=== PATIENT | male | born 1970 | race Caucasian/White ===

== ENCOUNTER 2020-03-24 10:38 | Outpatient (CLI) | payer OTHER, SELFPAY ==
--- NOTE | ~2020-03-24 | XR_ITS ---
EXAMINATION: XR chest 2V DATE: 03/24/2020 10:59 INDICATION: Orthopnea. TECHNIQUE: Frontal and lateral views of the chest were obtained. COMPARISON: Chest 2 views 07/01/2016, CT abdomen and pelvis 06/02/2019 FINDINGS: There is mild atelectasis at the lung bases. No pleural effusion or pneumothorax. The heart size is normal. There are prominent paracardial fat pads. IMPRESSION: 1. Mild atelectasis at the lung bases. Reviewed, dictated and finalized at location A.
== END 2020-03-24 10:39 | disposition home or self-care (01) ==
PROVIDERS: PCP Family Medicine; Visit Provider Family Medicine
DX: R06.01 Orthopnea (principal); J98.11 Atelectasis
CPT/HCPCS: 71046

== ENCOUNTER 2020-04-04 07:32 | Outpatient (CLI) | payer OTHER, SELFPAY ==
--- NOTE | 2020-04-04 | EST_ITS ---
Patient Info Name: Amanuel Perez Age: 50 years : 1970 Gender: Male Ht: 73 in Wt: 344 lbs BSA: 2.91 m2 Exam Date: 04/04/2020 11:05 AM Exam Location: [facility] Stress Patient Status: Outpatient Admit Date: 04/04/2020 Staff Ordering Physician: Rambo Carrillo MD Attending Provider: Rambo Carrillo MD Exercise Technologist: Cassi Patiño RDCS Exercise Physician: Ivan Aquino DO Exam Type: CA stress shane w NM Study Info Indications R06.01 - Orthopnea R07.89 - Other chest pain A regadenoson stress test was performed. Summary 1. 1. Negative lexiscan stress test for ischemic ST changes by ECG criteria. 2. 2. Stable hemodynamics throughout the test. 3. 3. Nuclear scan to follow and will be reported separately. Please correlate with it. 4. 4. Patient informed of the above results. Protocol: Lexiscan Stress ECG Details Stage: REST Duration (min): 3 min : 16 sec HR (bpm): 72 SBP (mmHg): 122 DBP (mmHg): 71 Stage: REST Duration (min): 8 min : 23 sec HR (bpm): 69 SBP (mmHg): 122 DBP (mmHg): 71 Stage: STAGE 1 Duration (min): 1 min : 0 sec HR (bpm): 90 SBP (mmHg): 121 DBP (mmHg): 53 Stage: RECOVERY Duration (min): 1 min : 0 sec HR (bpm): 92 SBP (mmHg): 117 DBP (mmHg): 56 Stage: RECOVERY Duration (min): 2 min : 0 sec HR (bpm): 90 SBP (mmHg): 117 DBP (mmHg): 56 Stage: RECOVERY Duration (min): 3 min : 0 sec HR (bpm): 89 SBP (mmHg): 133 DBP (mmHg): 61 Stage: RECOVERY Duration (min): 3 min : 3 sec HR (bpm): 88 SBP (mmHg): 133 DBP (mmHg): 61 Rest HR: 69 bpm Peak HR: 95 bpm Rest Sys BP: 122 mmHg Peak Sys BP: 133 mmHg Max Pred HR: 168 bpm % Max Pred HR: 57 % Target HR: 143 bpm Max RPP: 12,635 bpm*mmHg Termination Reason: Completed protocol Cardiac Symptoms: Shortness of breath Total Time: 1 min : 0 sec Rest Arevalo BP: 71 mmHg Peak Arevalo BP: 61 mmHg Total Dose: 0.4 mg Resting ECG Sinus rhythm with low voltage in precordial leads. Stress ECG No ST change. Arrhythmias None. Report Signatures
--- NOTE | ~2020-04-04 | NM_ITS ---
EXAMINATION: NM shane stress w perfusion DATE: 04/04/2020 13:10 INDICATION: Orthopnea. Chest pain. TECHNIQUE: Rest images were obtained following intravenous administration of 9.36 mCi Tc99m tetrofosm in (Myoview). The patient was infused intravenously with Lexiscan (Regadenoson). Then, 26.8 mCi Tc99m tetrofosmin (Myoview) was administered intravenously, and stress images were obtained. Data was charlie nstructed into short axis and horizontal and vertical long axis SPECT images. Gated SPECT images were also obtained. COMPARISON: None. FINDINGS: Small mild fixed perfusion defect involving the inferoapical, mid inferior and mid inferola teral segments consistent with infarct. No reversible ischemia. There is normal left ventricular vijay mber size, wall motion and ejection fraction. Left ventricular ejection fraction measures 67%. IMPRESSION: 1. Small mild infarct involving the apical inferior and mid inferior and mid inferolateral segments. No reversible ischemia. 2. Left ventricular ejection fraction measuring 67%. Reviewed, dictated and finalized at location A. IMPRESSION: 1. Small mild infarct involving the apical inferior and mid inferior and mid in ferolateral segments. No reversible ischemia. 2. Left ventricular ejection fraction measuring 67%.
--- NOTE | 2020-04-04 07:44 | ECHO_ITS ---
Patient Info Name: Amanuel Perez Age: 50 years : 1970 Gender: Male Ht: 71 in Wt: 344 lbs BSA: 2.88 m2 HR: 82 bpm BP: 131 / 85 mmHg Technical Quality: Fair Exam Date: 04/04/2020 7:55 AM Exam Location: [facility] Pulmonary Patient Status: Outpatient Admit Date: 04/04/2020 Staff Ordering Physician: Rambo Carrillo MD Microgrinder Operator: Adi Lemus RDCS, RT Attending Provider: Rambo Carrillo MD Referring Physician: Gerardo CHARLTON; Exam Type: CA echo doppler color flow Study Info Indications I50.9 - Heart failure, unspecified Complete two-dimensional, color flow and Doppler transthoracic echocardiogram is performed. Summary 1. Left ventricular chamber dimension is normal. 2. Left ventricular systolic function is normal, estimated at 55-60%. 3. There is mildly increased left ventricular wall thickness. 4. The left ventricular diastolic function is grade II diastolic dysfunction. 5. E/e' 4 is not elevated. Left Ventricle E/e' 4 is not elevated. Left ventricular chamber dimension is normal. Left ventricular systolic function is normal, estimated at 55-60%. There is mildly increased left ventricular wall thickness. The left ventricular diastolic function is grade II diastolic dysfunction. Right Ventricle Right ventricular chamber dimension is normal. Right ventricular systolic function is normal. Left Atria Left atrial chamber dimension is normal. Right Atria Right atrial chamber dimension is not well visualized. Aortic Valve Cannot determine number of aortic valve leaflets. The aortic valve is not well visualized. There is no aortic valve stenosis. There is no aortic valve regurgitation. Pulmonic Valve The pulmonic valve is not well visualized. There is no pulmonic regurgitation. Mitral Valve There is no mitral valve stenosis. There is no mitral valve regurgitation. Tricuspid Valve The tricuspid valve leaflets are not well visualized. There is no tricuspid valve regurgitation. Pericardium/Pleural There is no pericardial effusion. Inferior Vena Cava Normal inferior vena cava with >50% collapse upon inspiration consistent with normal right atrial pressure, 5 mmHg. Aorta The aortic root size at the sinus of Valsalva is normal. Left Ventricular Outflow Tract Name Value Normal LVOT 2D LVOT Diameter 2.1 cm LVOT Doppler LVOT Peak Gradient 4 mmHg LVOT Mean Gradient 2 mmHg LVOT VTI 22 cm LVOT VTI/AV VTI Ratio 0.8 LVOT Stroke Volume 80 ml LVOT CO 5.7 l/min LVOT CI 2.0 l/min/m2 Pulmonic Valve Name Value Normal PV Doppler PV Peak Gradient 2 mmHg Mitral Valve
== END 2020-04-04 07:33 | disposition home or self-care (01) ==
PROVIDERS: PCP Family Medicine; Visit Provider Family Medicine
DX: R06.01 Orthopnea (principal); R07.89 Other chest pain; R06.02 Shortness of breath; I21.9 Acute myocardial infarction, unspecified
CPT/HCPCS: 78452; 93017; 93306; A9502; J2785

== ENCOUNTER 2020-04-11 06:40 | Outpatient (CLI) | payer OTHER, SELFPAY ==
[2020-04-11 17:06] LABS: SARS-CoV-2 RNA PCR Negative
== END 2020-04-11 06:41 | disposition home or self-care (01) ==
LOC: ANHCOVIDDT 06:41
PROVIDERS: PCP Family Medicine; Visit Provider Specialist
DX: Z01.812 Encounter for preprocedural laboratory examination (principal); Z20.828 Contact with and (suspected) exposure to other viral communicable diseases
CPT/HCPCS: 87635; C9803; U0003

== ENCOUNTER 2020-04-14 05:47 | Day surgery (SDC) | payer OTHER, SELFPAY ==
[2020-04-11 17:20] VITALS: BMI 45.1
[2020-04-14] VITALS (9 sets, daily range): BP systolic 114–138; BP diastolic 71–93; PULSE 68–83; RESP 14–18; TEMP 36–36.8; O2SAT 96–100
[2020-04-14 07:40] LABS: Basophils Percent Auto 0.7 % (0.2-1.2); Eosinophils Absolute Auto 0.1 K/mm3 (0-0.3); Eosinophils Percent Auto 1.9 % (0-4.4); Hematocrit 47.4 % (42.0-52.0); Hemoglobin 16.1 g/dL (14.0-18.0); Immature Granulocyte Absolute 0.02 K/mm3 (0.00-0.031); Immature Granulocyte Percent A 0.3 % (0-0.5); Lymphocytes Absolute Auto 1.51 K/mm3 (0.9-3.2); Mean Corpuscular Hemoglobin 30.8 pg (26-34); Mean Corpuscular Volume 90.8 fl (80-100); Mean Platelet Volume 10.1 fl (7.4-10.4); Monocytes Absolute Auto 0.4 K/mm3 (0.1-0.6); Monocytes Percent Auto 7.4 % (2.6-8.5); Neutrophils Absolute Auto 3.7 K/mm3 (1.3-6.7); Neutrophils Percent Auto 63.7 % (45.5-73.1); Platelet Count Result 232 k/mm3 (150-375); Red Blood Count 5.22 M/mm3 (4.6-6.20); Red Cell Distribution Width 12.4 % (11.5-14.5); White Blood Count 5.8 K/mm3 (4.5-10.0)
[2020-04-14 07:50] LABS: Prothrombin Time 12.9 Seconds (11.1-14.7)
[2020-04-14 07:52] LABS: Blood Urea Nitrogen 14 mg/dL (9-20); Carbon Dioxide 28 mmol/L (22-30); Chloride 103 mmol/L (98-107); Estimated CRCL calculation 131 ml/min; Estimated Glomerular Filt Rate > 60; Glucose 113 mg/dL (75-110); Potassium 4.2 mmol/L (3.4-5.0); Sodium 138 mmol/L (137-145)
--- NOTE | 2020-04-14 08:38 | WPDMODSED ---
Moderate Sedation Note-Pt Data Patient Data Diagnosis: History of chest pain Abnormal nuclear stress test Morbid obesity Allergies Allergy/AdvReac Type Severity Reaction Status Date / Time morphine Allergy Unknown Itchy, Verified 03/24/20 08:46 hives Home Medications Medication Instructions Recorded Confirmed Type metoprolol succinate 50 mg 50 mg PO DAILY #30 tablet 04/07/20 Rx tablet,extended release 24 hr aspirin 81 mg PO DAILY 04/11/20 04/11/20 History Current Medications: Active Medications Sodium Chloride (Normal Saline Iv) 500 mls @ 100 mls/hr IV CONT .Q5H [facility] Sedation/Anesthesia: No previous sedation/anesthesia problems (including family history). [facility] Past Medical History Medical History (Updated 03/24/20 @ 09:20 by Rambo Carrillo MD) Chest pressure Orthopnea Social History Social History Smoking status: Never smoker Smoking end date: 11/28/14 Alcohol intake: current Gender identity (if verbalized by the patient): Male Mod Sed Physical Exam Physical Exam Pre Procedural Exam: Normal: Neck, Throat, Airway, Lungs, Heart Rate, Heart Rhythm, Neuro Exam and Extremities and Variation: Appearance (Obese white male no apparent distress) and Heart Size (PMI not palpable because of body habitus) Hours since solid foods: 12 Hours since liquid intake: 12 Internal Medicine - PN: Obj Da Vital Signs Vital Signs: Vital Signs - 24 hr 04/14/20 07:27 Temperature 36.0 C L Pulse Rate 83 Respiratory Rate 18 Blood Pressure 131/84 Pulse Oximetry 96 Meds/Results Medications: Active Medications Generic Name Dose Route Start Last Admin Trade Name Freq PRN Reason Stop Dose Admin Sodium Chloride 500 mls @ 100 mls/hr 04/14/20 06:05 Normal Saline Iv IV CONT .Q5H [facility] Labs CBC & Chem 7: 04/14/20 07:31 04/14/20 07:31 Labs: Laboratory Results - last 24 hr 04/14/20 04/14/20 04/14/20 07:31 07:31 07:31 WBC 5.8 RBC 5.22 Hgb 16.1 Hct 47.4 MCV 90.8 MCH 30.8 MCHC 34.0 RDW 12.4 Plt Count 232 MPV 10.1 Immature Gran % (Auto) 0.3 Neut % (Auto) 63.7 Lymph % (Auto) 26.0 Sierra % (Auto) 7.4 Eos % (Auto) 1.9 Baso % (Auto) 0.7 Lymph # (Auto) 1.51 Sierra # (Auto) 0.4 Eos # (Auto) 0.1 Baso # (Auto) 0.0 Abs Immat Gran (auto) 0.02 Absolute Neuts (auto) 3.7 Absolute Nucleated RBC 0.0 Nucleated RBC % 0.0 PT 12.9 INR 1.0 Sodium 138 Potassium 4.2 Chloride 103 Carbon Dioxide 28 BUN 14 Creatinine 0.90 Estim Creat Clear Calc 131 Estimated GFR > 60 Glucose 113 H Calcium 9.0 ASA Classification/Sedation ASA Classification/Sedation ASA Class: II Emergent: No Risks: Risks, benefits and alternatives explained and patient/family accepted plan for sedation. Patient re-evaluated immediately prior to sedation.
--- NOTE | 2020-04-14 09:24 | P.PCNCC_ITS ---
Cardiac Cath Procedure Note Date of procedure:: 04/14/20 Performing physician:: Júnior Grier MD Indication:: History of chest pain, abnormal nuclear stress test Brief clinical history:: this is a 50-year-old man who has hypertension and morbid obesity. He experienced several weeks of unremitting chest pain recently which prompted an ischemic evaluation. His PCP had him undergo a nuclear stress test which demonstrated a apical inferior defect following this he was recommended to undergo angiography to delineate coronary anatomy. Procedure Procedure performed:: Left heart catheterization with left ventriculography and coronary angiography. Angio-Seal to right femoral artery Sedation/Medication given:: fentanyl 50 mg Versed 2 mg case start time 9:05 a.m. case end time 9:20 a.m. sedation provided by Ever Maldonado RN, trained observer Access site:: right femoral artery Estimated blood loss:: 10-15 cc Procedure note:: patient was brought to the cardiac catheterization lab in the postabsorptive state. The right femoral triangle was prepared and draped in the usual fashion. Anesthesia was provided with 1% lidocaine infiltrated locally. Using modified Seldinger technique a 5 Belgian sheath was placed into the femoral artery after this I used a 5 Belgian angled pigtail catheter to document left- sided hemodynamics and to inject the left ventriculogram in the MEZA projection. Following this the pigtail catheter was withdrawn. I used a 5 Belgian FL4 catheter to engage inject the left coronary artery and then a 5 Belgian JR4 catheter to engage inject the right coronary artery. After this the cineangiograms were remain viewed in the case was terminated. An angiogram was done of the femoral artery through the sheath after which an Angio-Seal device was deployed with good hemostatic result. Findings:: Hemodynamics: Central aortic pressure is 120/66 left ventricle 122/2 end-diastolic pressure 11 there is no systolic gradient on pullback across the aortic valve. The left ventricle is normal in size and exhibits concentric LVH. Contractility is well preserved in all segments the global ejection fraction is visually estimated to be 65% the left main coronary artery is large in caliber and widely patent the LAD is a large to medium caliber artery gives rise to a huge diagonal branch the LAD and the diagonal and septal branches are angiographically normal the circumflex is a large caliber vessel giving rise to the marginal branches the circumflex system is angiographically unremarkable right coronary is large in caliber and dominant to the posterior circulation the right coronary as well as its RPDA and PL branches are angiographically normal Conclusion:: right coronary dominant circulation with no evidence of CAD left ventricular hypertrophy with good systolic function successful Angio-Seal at the end of the case false-positive nuclear stress test because of obesity Júnior Grier MD [facility]
--- NOTE | 2020-04-14 09:30 | SUR.PHASEII ---
0930-pt has returned from the CCL after a negative cardiac cath. No distress noted. AOx4. Groin soft and non-tender, no evidence of bleeding or hematoma noted. String doppled pulse noted. Will continue to monitor.
--- NOTE | 2020-04-14 12:27 | SUR.PHASEII ---
1225-pt given D/C orders and instructions. Questions answered and verbalized understanding. AOx4. Groin soft and non-tender, no evidence of bleeding or hematoma noted. 2+ doppled pulse noted. Taken via wheelchair to waiting vehicle. No distress noted or verbalized at time of departure.
== END 2020-04-14 12:24 | disposition home or self-care (01) ==
PROVIDERS: PCP Family Medicine; Visit Provider Specialist
PROC: 4A023N7 Measurement of Cardiac Sampling and Pressure, Left Heart, Percutaneous Approach (ICD-10-PCS; CPT 93452; principal; 2020-04-14 08:30)
DX: R94.39 Abnormal result of other cardiovascular function study (principal); R07.9 Chest pain, unspecified; I10 Essential (primary) hypertension; E66.01 Morbid (severe) obesity due to excess calories; Z68.41 Body mass index [BMI] 40.0-44.9, adult
CPT/HCPCS: 36415; 80048; 85025; 85610; 93458; C1760; C1887; C1894; J1644; J2250; J3010; J7040

== ENCOUNTER → 2023-04-01 11:59 | Outpatient (CLI) | payer OTHER, SELFPAY ==
--- NOTE | ~2023-04-01 | XR_ITS ---
Clinical Indication: Shortness of breath PA and lateral views of the chest: Comparison: 03/24/2020 Findings: There is discoid bibasilar scarring or atelectasis. The lungs are otherwise clear. Cardiom ediastinal silhouette is within normal limits. Bones and soft tissues are unremarkable. Impression: Bibasilar scarring or atelectasis, otherwise clear lungs. Reviewed, dictated and finalized at location . Impression: Bibasilar scarring or atelectasis, otherwise clear lungs.
--- NOTE | ~2023-04-01 | XR_ITS ---
EXAM: XR sacrum coccyx min 2V DATE: 04/01/2023 12:45 HISTORY: M53.3 - Sacrococcygeal disorders, not elsewhere classified . COMPARISON: CT abdomen pelvis 06/02/2019. FINDINGS: Normal mineralization. One bone width posterior displacement of the distal coccygeal eleme nts, between the second and third coccygeal elements, slightly increased since the prior study. No ly tic or blastic lesion. Moderate bilateral hip osteoarthritis. No erosion or periosteal change. Soft t issues within normal limits. IMPRESSION: Posteriorly displaced fracture/dislocation between the second and third coccygeal element s, possibly representing acute on chronic displacement given the history of recent fall and subtle ch itz since the prior. Correlate with pain/tenderness. Reviewed, dictated and finalized at location K. IMPRESSION: Posteriorly displaced fracture/dislocation between the second and t hird coccygeal elements, possibly representing acute on chronic displacement gi luh the history of recent fall and subtle change since the prior. Correlate wit h pain/tenderness.
== END ==
PROVIDERS: PCP Family Medicine; Visit Provider Family Medicine
DX: R06.02 Shortness of breath (principal); M53.3 Sacrococcygeal disorders, not elsewhere classified
CPT/HCPCS: 71046; 72220

== ENCOUNTER 2024-03-07 06:55 | Outpatient (CLI) | payer OTHER, SELFPAY ==
--- NOTE | ~2024-03-07 | MR_ITS ---
MRI of the left shoulder Technique: Axial proton-density fat-sat images, coronal proton density fat-sat and T2 fat-sat images, and sagittal T1-weighted and T2 fat-sat images were acquired. Clinical History: Dislocation Findings: Exam degraded by motion artifact. There is mild AC joint degenerative change, with minimal subacromial spur. Coracoclavicular, coracoac romial, and coracohumeral ligaments are probably intact. Supraspinatus and infraspinatus tendons appear intact, without definite partial or full-thickness tea r. There is moderate to advanced tendinosis of the anterior, distal supraspinatus tendon. Subscapular is tendon is intact, with mild to moderate tendinosis. Tendon of long head of the biceps is intact. Suspected small fracture at the anterior inferior glenoid. There is anteroinferior labral tear. There is minimal posterior subluxation of the humeral head with respect to the glenoid. Probable mild focal acute Hill-Sachs deformity present. Inferior glenohumeral ligament is intact. Moderate glenohu meral joint effusion present. No fluid present in the subacromial/subdeltoid bursa. There is mild reba matous change of the subscapularis muscle belly. No muscle atrophy evident. There is fluid in the sub scapularis recess. 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 CT scan would be more s ensitive for fine bony evaluation of the glenoid. Small acute Hill-Sachs deformity. Above findings are compatible sequelae recent anteroinferior humeral head dislocation. Moderate glenohumeral joint effusion. Rotator cuff tendinosis without definite partial or full-thickness tear. Reviewed, dictated and finalized at [facility]. 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 C T scan would be more sensitive for fine bony evaluation of the glenoid. Small acute Hill-Sachs deformity. Above findings are compatible sequelae recent anteroinferior humeral head dislo cation. Moderate glenohumeral joint effusion. Rotator cuff tendinosis without definite partial or full-thickness tear.
== END 2024-03-07 06:56 | disposition home or self-care (01) ==
PROVIDERS: PCP Family Medicine; Visit Provider Orthopaedic Surgery
DX: M25.412 Effusion, left shoulder (principal); M75.32 Calcific tendinitis of left shoulder; S42.295A Other nondisplaced fracture of upper end of left humerus, initial encounter for closed fracture; X58.XXXA Exposure to other specified factors, initial encounter
CPT/HCPCS: 73221

== ENCOUNTER 2024-09-19 09:14 | Outpatient (CLI) | payer OTHER, SELFPAY ==
--- NOTE | ~2024-09-19 | XR_ITS ---
CHEST RADIOGRAPH, PA AND LATERAL CLINICAL HISTORY: R52 - Pain, unspecified . COMPARISON: 04/01/2023 TECHNIQUE: PA and lateral views of the chest. FINDINGS The cardiomediastinal silhouette is unremarkable. The lungs are clear. Visualized osseous structures and soft tissues are unremarkable. IMPRESSION: No focal infiltrate or effusion. Reviewed, dictated and finalized at location A.
== END 2024-09-19 09:15 | disposition home or self-care (01) ==
LOC: MICIMG 09:15
PROVIDERS: PCP Family Medicine; Visit Provider Nurse Practitioner Adult Health
DX: R52 Pain, unspecified (principal)
CPT/HCPCS: 71046

== ENCOUNTER 2025-08-21 13:05 | Outpatient (CLI) | payer OTHER, SELFPAY ==
--- OUTSIDE RECORDS SUMMARY | 2025-08-21 13:08 | XMS_ITS | Clinical Summary ---
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 Name Role Phone Rambo Carrillo MD Primary Care Provider [phone] Allergies Active Allergy Reactions Criticality Noted Date Comments Opioids - Morphine Analogues Itching Low Medications metoprolol XL (TOPROL-XL) 50 mg extended release tablet TK 1 T PO D 04/07/2020 Active Active Problems Problem Noted Date Diagnosed Date Screening for colon cancer 07/17/2025 LVH (left ventricular hypertrophy) 05/19/2020 Morbid obesity with BMI of 40.0-44.9, adult 03/28 Diastolic dysfunction 04/09/2020 Dyspnea 04/09/2020 Abnormal result of other cardiovascular function study 04/09/2020 Chest tightness 04/09/2020 Abnormal stress test 04/09/2020 Obstructive sleep apnea (adult) (pediatric) 03/29 Encounters Date Type Department Care Team Description 07/17/2025 Telephone [facility] Gastroenterology at [address] [place] [address] [facility] from Last 3 Months Surgical History Surgery Date Site/Laterality Comments HI EXC HYDROCELE SPRMATIC CORD UNI SPX Surgery Spermatic Cord Excision Of Hydrocele - (Added by TW Conv) HERNIA REPAIR 2004, 1984 VASECTOMY 11/28/2009 - 11/27/2010 KNEE ARTHROSCOPY Bilateral CARDIAC CATHETERIZATION Bilateral Medical History Medical History Date Comments Autoimmune disease Vitiligo 2009 DAYANARA (obstructive sleep apnea) Morbid obesity (HCC) Family History Medical History Relation Name Comments No Known Problems Brother Alcohol abuse Father Harsha Sleep apnea Father Harsha Obstructive sle ep apnea - (Added by TW Conv) Cancer Mother Charito No Known Problems Sister Relation Name Status Comments Brother Alive Father Harsah (Age 62) Mother Charito Alive Sister Alive Social History Tobacco Use Types Packs/Day Years Used Date Smoking Tobacco: Never Smokeless Tobacco: Never Alcohol Use Standard Drinks/Week Comments Yes 2 (1 standard drink = 0.6 oz pur e alcohol) Sex and Gender Information Value Date Recorded Sex Assigned at Not on file 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 Gender Identity Male 04/08/2020 4:12 PM CDT Sexual Orientation Straight 04/08/2020 4: 12 PM CDT Obstetrics History Last Filed Vital Signs Vital Sign Reading Time Taken Comments Blood Pressure 110/72 05/19/2020 12:57 PM CDT Pulse 77 05/19/2020 12:57 PM CDT Temperature - - Respiratory Rate - - Oxygen Saturation 95% 05/19/2020 12:57 PM CDT Inhaled Oxygen Concentration - - Weight 157.4 kg (347 lb) 05/19/2020 12:57 PM CDT Height 188 cm (6' 2) 05/19/2020 12:57 PM CDT Body Mass Index 44.55 05/19/2020 12:57 PM CDT Plan of Treatment Upcoming Encounters Date Type Department Care Team (Late st Contact Info) Description 08/22/2025 1:30 PM CDT Hospital Encounter [address] [address] Akhil Vuong DO [address] [facility] [address] [place] [address] 08/22/2025 1:30 PM CDT - 08/22/2025 2:00 PM CDT Surgery [address] [address] Akhil Vuong DO [address] [facility] [address] [place] [address] COLONOSCOPY Scheduled Procedures Name Priority Associated Diagnoses Date/Ti me COLONOSCOPY Screening for colon cancer 08/22/2025 1:30 PM CDT Health Maintenance Due Date Last Done Comments Colon Cancer Screening-Colonoscopy 1970 Depression Screening 1970 Hepatitis C Screening 1970 Prostate Cancer Screening-PSA 1970 DTaP/Tdap/Td Vaccine (1 - Tdap) 02/21/1979 Hepatitis B Screening 02/21/1986 Regular Well Visit/Exam 18-64 02/21/1986 Zoster Vaccine (1 of 2) 02/21/2018 Covid-19 Vaccine (2 - 2024-2 6 season) 2025 01/30/2021 Influenza Vaccine (#1) 2025 Pneumococcal vaccine <65 Aged Out No longer eligible based on patient's age to complete this topic Insurance [facility] Care Teams Biodiesel Plant Operations Engineer Relationship Specialty Start Date End Date Rambo Carrillo MD PCP - General Family Medicine 04/07/20
--- NOTE | 2025-08-21 13:24 | ECHO_ITS ---
Patient Info Name: Amanuel Perez Age: 55 years : 1970 Gender: Male Ht: 75 in Wt: 371 lbs BSA: 3.06 m2 HR: 72 bpm BP: 149 / 84 mmHg Technical Quality: Fair Exam Date: 08/21/2025 1:34 PM Patient Status: O Admit Date: 08/21/2025 Exam Type: CA echo doppler color flow Complete two-dimensional, color flow and Doppler transthoracic echocardiogram is performed. Roll Plugger: Angelique Martinez Attending Provider: Rambo Carrillo MD Summary 1. Complete two-dimensional, color flow and Doppler transthoracic echocardiogram is performed. 2. Left ventricular chamber dimension is normal. 3. Left ventricular systolic function is normal, estimated at 60-65. 4. The left ventricular diastolic function is grade I diastolic dysfunction. 5. E/e' 8 is minimally elevated. 6. The mitral valve has a mildly calcified annulus. 7. There is trace tricuspid valve regurgitation. 8. No pulmonary hypertension, estimated pulmonary arterial systolic pressure is 33 mmHg. Left Ventricle E/e' 8 is minimally elevated. Left ventricular chamber dimension is normal. Left ventricular systolic function is normal, estimated at 60-65. The left ventricular diastolic function is grade I diastolic dysfunction. Right Ventricle Right ventricular chamber dimension is normal. Right ventricular systolic function is normal and with normal TAPSE 2.1 cm. Left Atria Left atrial chamber dimension is normal. Right Atria Right atrial chamber dimension is normal. Aortic Valve The aortic valve is trileaflet. There is no aortic valve stenosis. There is no aortic valve regurgitation. Pulmonic Valve There is no pulmonic regurgitation. Mitral Valve The mitral valve has a mildly calcified annulus. There is no mitral valve stenosis. There is no mitral valve regurgitation. Tricuspid Valve There is trace tricuspid valve regurgitation. No pulmonary hypertension, estimated pulmonary arterial systolic pressure is 33 mmHg. Pericardium/Pleural There is no pericardial effusion. Inferior Vena Cava Normal inferior vena cava with >50% collapse upon inspiration consistent with normal right atrial pressure, 5 mmHg. Aorta The aortic root size at the sinus of Valsalva is normal. Left Ventricular Outflow Tract Name Value Normal LVOT 2D LVOT Diameter 2.0 cm LVOT Doppler LVOT Peak Velocity 108 cm/s LVOT Peak Gradient 5 mmHg LVOT Mean Gradient 3 mmHg LVOT VTI 21 cm LVOT VTI/AV VTI Ratio 0.8 LVOT Stroke Volume 69 ml LVOT CO 15.8 l/min LVOT CI 5.2 l/min/m2 Pulmonic Valve Name Value Normal PV Doppler PV Peak Velocity 104 cm/s PV Peak Gradient 4 mmHg Mitral Valve Name Value Normal MV Diastolic Function MV E Peak Velocity 73 cm/s MV A Peak Velocity 82 cm/s MV E/A 0.9 MV Decel Time (PW) 275 ms MV Annular TDI MV E/e' (Septal) 8.8 MV E/e' (Lateral) 8.0 MV E/e' (Average) 8.4 Tricuspid Valve Name Value Normal TV Regurgitation Doppler TR Peak Velocity 263 cm/s TR Peak Gradient 28 mmHg Estimated PAP/RSVP RA Pressure 5 mmHg <=5 PA Systolic Pressure 33 mmHg <36 RV Systolic Pressure 33 mmHg <36 TV Annular TDI TV Lateral Sandie s' Velocity 12.5 cm/s >=9.5 Aorta Name Value Normal Ascending Aorta Ao Root Diameter (MM) 3.8 cm Ao Root Diam Index (MM) 1.2 cm/m2 Aortic Valve Name Value Normal AV Doppler AV Peak Velocity 127 cm/s AV Peak Gradient 6 mmHg AV Mean Gradient 4 mmHg AV VTI 25 cm AV Area (Cont Eq VTI) 2.7 cm2 >=3.0 AV Area (Cont Eq Hugh) 2.8 cm2 AV DI (Hugh) 0.85 AV Regurgitation 2D LVOT Area 3.3 cm2 Ventricles Name Value Normal LV Dimensions 2D/MM IVS Diastolic Thickness (2D) 1.0 cm 0.6-1.0 LVID Diastole (2D) 3.8 cm 4.2-5.8 LVIW Diastolic Thickness (2D) 0.9 cm 0.6-1.0 LVID Systole (2D) 2.7 cm 2.5-4.0 LVOT Diameter 2.0 cm LV Mass (2D Cubed) 113.26 g 88.00-224.00 LV Mass Index (2D Cubed) 37 g/m2 49-115 Relative Wall Thickness (2D) 0.49 <=0.42 LV Fractional Shortening/Ejection Fraction 2D/MM LV Fractional Shortening (2D) 29 % 25-43 LV EF (2D Teichholz) 57 % LV Diastolic Volume (4C MOD) 138 ml LV EF (4C MOD) 65 % LV Diastolic Volume (2C MOD) 145 ml LV EF (2C MOD) 71 % LV Diastolic Volume (BP MOD) 144 ml 62-150 LV Diastolic Volume Index (BP MOD) 47 ml/m2 34-74 LV Systolic Volume (BP MOD) 45 ml 21-61 LV Systolic Volume Index (BP MOD) 15 ml/m2 11-31 LV EF (BP MOD) 68 % 52-72 LV Diastolic Length (4C) 8.9 cm LV Systolic Length (4C) 7.1 cm LV Stroke Volume (4C MOD) 90 ml RV Dimensions 2D/MM RVID Diastole (2D) 4.8 cm 2.1-3.5 Atria Name Value Normal LA Dimensions LA Volume (4C A-L) 37 ml LA Volume (BP A-L) 47 ml RA Dimensions RA Systolic Major Wildwood Length (4C) 4.9 cm 2.1-2.7 RA Area (4C) 19.2 cm2 <=18.0 Report Signatures
== END 2025-08-21 13:06 | disposition home or self-care (01) ==
PROVIDERS: PCP Family Medicine; Visit Provider Family Medicine
DX: R06.01 Orthopnea (principal); R07.89 Other chest pain; R60.9 Edema, unspecified
CPT/HCPCS: 93306

== ENCOUNTER 2025-09-13 15:23 | Outpatient (CLI) | payer OTHER, SELFPAY ==
--- NOTE | ~2025-09-13 | CT_ITS ---
EXAMINATION: CT sinus wo con COMPARISON: None HISTORY: R09.81 - Nasal congestion TECHNIQUE: Axial images were obtained without IV contrast. Sagittal, coronal reconstruction images were obtained from the axial views. CT scan performed using dose optimization techniques including the following automated exposure control; adjustment of mA and/or kV; use of iterative reconstruction technique. Automatic exposure control was used to reduce radiation dose. Permanent radiation dose record is archived to PACS. FINDINGS: Visualized brain parenchyma optic globes and soft tissues appear unremarkable Frontal sinuses are diminutive. Minimal mucosal thickening in the ethmoidal air cells. Minimal mucosal thickening in the left maxillary sinus. The ostiomeatal complexes are narrowed but patent. Nasal septum is anteriorly deviated to the left, there is thickening of the turbinates with narrowing of the nasal cavities bilaterally. The sphenoid sinuses appear unremarkable. No osseous destruction or wall thickening is identified. IMPRESSION: Sinusitis detailed above Reviewed, dictated and finalized at location P. IMPRESSION: Sinusitis detailed above
--- NOTE | ~2025-09-13 | XR_ITS ---
EXAMINATION: XR chest 2V, 09/13/2025 15:54 CDT HISTORY: R05.3 - Chronic cough COMPARISON: No comparisons available. Technique: 2 views obtained. Findings: Multiple small basilar infiltrates. No pneumothorax. Heart is normal size. Mediastinal and hilar contours are within normal limits. Bony thorax no acute abnormality. Impression: Bilateral pneumonia Reviewed, dictated and finalized at location P. Impression: Bilateral pneumonia
--- OUTSIDE RECORDS SUMMARY | 2025-09-13 15:28 | XMS_ITS | Encounter Summary ---
Author Organization [facility] Healthcare Address [address] [place] [address] Care Team Providers Care Child & Adolescent Psychiatrist Name Role Phone Rambo Carrillo MD Primary Care Provider [phone] Encounter Details Date Type Department Care Team (Latest Contact Info) Description 08/25/2025 Results Follow-Up [facility] Gastroenterology at [address] [place] [id number] Akhil Vuong, [address] [place] [address] Surgical pathology Social History Tobacco Use Types Packs/Day Years Used Date Smoking Tobacco: Never Smokeless Tobacco: Never Alcohol Use Standard Drinks/Week Comments Yes 1 (1 standard drink = 0.6 oz pur e alcohol) AUDIT-C Answer Date Recorded Q1: How often do you have a drink containing alc ohol? 2-4 times a month 08/21/2025 Q2: How many drinks containi ng alcohol do you have on a typical day when you are drinking? 1 or 2 08/21/2025 Frequency of Binge Drinking Not on file 07/30 Personal Safety Answer Date Recorded Have you ever been in or are you currently in a harmful physical or emotional relationship or is someone making you feel afraid or unsafe? 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 Copy has been sent to primary and mailed to patient. Patient will giveour office a call later to schedule 6 month colonoscopy once he's around his calendar. documented in this encounter Plan of Treatment Not on file documented as of this encounter Visit Diagnoses Not on filedocumented in this encounter Care Teams Child & Adolescent Psychiatrist Relationship Specialty Start Date End Date Rambo Carrillo MD PCP - General Family Medicine 04/07/20 documented as of this encounter
--- OUTSIDE RECORDS SUMMARY | 2025-09-13 15:28 | XMS_ITS | Clinical Summary ---
Author Organization [facility] [address] Address [address] [place] [address] Care Team Providers Care Power Equipment Mechanics Instructor Name Role Phone Rambo Carrillo MD Primary Care Provider [phone] Allergies Active Allergy Reactions Criticality Noted Date Comments Opioids - Morphine Analogues Itching Low Medications metoprolol XL (TOPROL-XL) 50 mg extended release tablet TK 1 T PO D 04/07/2020 Ac tive furosemide (LASIX) 40 mg tablet Take 1 tablet (40 mg total) by mouth every morning 07/30/2025 Active Active Problems Problem Noted Date Diagnosed Date Screening for colon cancer 07/17/2025 LVH (left ventricular hypertrophy) 05/19/2020 Morbid obesity with BMI of 40.0-44.9, adult 03/28 Diastolic dysfunction 04/09/2020 Dyspnea 04/09/2020 Abnormal result of other cardiovascular function study 04/09/2020 Chest tightness 04/09/2020 Abnormal stress test 04/09/2020 Obstructive sleep apnea (adult) (pediatric) 03/29 Encounters Date Type Department Care Team Description 08/25/2025 Results Follow-Up [facility] Gastroenterology at [place] [address] [facility] [address] [place] [address] Akhil Vuong, Surgical pathology 08/22/2025 9:00 AM CDT Anesthesia Event [facility] [address] [place] [address] Jose Liu MD [place], Natanael Chávez, BOILER ROOM OPERATOR 08/22/2025 9:00 AM CDT - 08/22/2025 9:30 AM CDT Surgery [facility] [address] [place] [address] Akhil Vuong, DO COLON REMOVAL SNARE 08/22/2025 7:47 AM CDT - 08/22/2025 10:33 AM CDT Hospital Encounter [facility] [address] [place] [address] Akhil Vuong, DO Screening for colon cancer Discharge Disposition: Discharge to home or self care 07/17/2025 Telephone [facility] Gastroenterology at [place] [address] [facility] [address] [place] [phone] Christin Butler MA from Last 3 Months Surgical History Surgery Date Site/Laterality Comments CA EXC HYDROCELE SPRMATIC CORD UNI SPX Surgery Spermatic Cord Excision Of Hydrocele - (Added by TW Conv) HERNIA REPAIR 1984 VASECTOMY 11/28/2009 - 11/27/2010 KNEE ARTHROSCOPY Bilateral CARDIAC CATHETERIZATION Bilateral COLONOSCOPY 08/22/2025 Medical History Medical History Date Comments DAYANARA (obstructive sleep apnea) Morbid obesity (HCC) Adenomatous colon polyp Vitiligo Family History Medical History Relation Name Comments No Known Problems Brother Alcohol abuse Father Harsha Sleep apnea Father Harsha Obstructive sle ep apnea - (Added by TW Conv) Cancer Mother Charito Colon cancer Mother Charito No Known Problems Sister Relation Name Status Comments Brother Alive Father Harsha (Age 62) Mother Charito Alive Sister Alive [...] on file 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 Gender Identity Male 04/08/2020 4:12 PM CDT Sexual Orientation Straight 04/08/2020 4: 12 PM CDT Obstetrics History Last Filed Vital Signs Vital Sign Reading Time Taken Comments Blood Pressure 132/78 08/22/2025 10:14 AM CDT Pulse 79 08/22/2025 10:14 AM CDT Temperature 36.6 C (97.9 F) 08/22/2025 10:14 AM CDT Respiratory Rate 16 08/22/2025 10:14 AM CDT Oxygen Saturation 98% 08/22/2025 10:14 AM CDT Inhaled Oxygen Concentration - - Weight 168.3 kg (371 lb) 08/22/2025 8:08 AM CDT Height 188 cm (6' 2) 08/22/2025 8:08 AM CDT Body Mass Index 47.63 08/22/2025 8:08 AM CDT Plan of Treatment Health Maintenance Due Date Last Done Comments Depression Screening 1970 Hepatitis C Screening 1970 Prostate Cancer Screening-PSA 1970 DTaP/Tdap/Td Vaccine (1 - Tdap) 02/21/1979 Hepatitis B Screening 02/21/1986 Regular Well Visit/Exam 18-64 02/21/1986 Zoster Vaccine (1 of 2) 02/21/2018 Covid-19 Vaccine (2 - 2024-2 6 season) 2025 01/30/2021 Influenza Vaccine (#1) 2025 Colon Cancer Screening-Colonoscopy 08/22/2035 08/22/2025 Colon Cancer Screening-CT Colonography Discontinued 08/22/2025 Colon Cancer Screening-DNA Stool Discontinued 08/22/20 Colon Cancer Screening-FIT Discontinued 08/22/2025 Colon Cancer Screening-Sigmoidoscopy Discontinued 08/22/2025 Pneumococcal vaccine <65 Aged Out No longer eligible based on patient's age to complete this topic Procedures Procedure Name Priority Date/Time Associated Diagnosis Comments SURGICAL PATHOLOGY STAT 08/22/2025 2: 27 PM CDT Screening for colon cancer ENDO ADD ON COLON BIOPSY 08/22/2025 8:56 AM CDT Screening for colon cancer COLON REMOVAL SNARE 08/22/2025 8 :56 AM CDT Screening for colon cancer COLONOSCOPY 08/22/2025 7:49 AM CDT from Last 3 Months Results * Surgical pathology (08/22/2025 2:27 PM CDT) Tissue (Polyp(s), colon/colorectal, esophageal, gastric) 08/22/2025 9:40 AM CDT Tissue specimen (specimen) (Polyp(s), colon/colorectal, esophageal, gastric) 08/22/2025 9:41 AM CDT Tissue specimen (specimen) (Polyp(s), colon/colorectal, esophageal, gastric) 08/22/2025 9:41 AM CDT Tissue specimen (specimen) (Polyp(s), colon/colorectal, esophageal, gastric) 08/22/2025 9:41 AM CDT Tissue specimen (specimen) (Polyp(s), colon/colorectal, esophageal, gastric) 08/22/2025 9:41 AM CDT Narrative PATHOLOGY [facility] - 08/23/2025 4:06 PM CDT EPIC results best viewed via link to PDF [facility] Department of Pathology [address] [place] [address] Note to Patients: This report may contain a detailed description of human tissue sent by a health care provider to the laboratory for pathologic evaluation. The content of this report is essential for diagnosis and may provide important critical findings. This information may be unfamiliar to patients to review without a medical professional present. It is advised that the patient review this report in the presence of a health care provider who can answer questions and explain the details. Final Report Patient Name: KATLYN PEREZEdi Address: [address] [place] [address] , [place] [address] Gender: M : 1970 (Age: 55) Service: Gastro Location: [facility] Hospital #: [id number] Patient Type: [facility] Taken: 08/22/2025 Received: 08/22/2025 Accessioned: 08/22/2025 Reported: 08/23/2025 Physician(s):Dr. Akhil Vuong, D.O. Diagnosis: A. Distal transverse colon polyp, endoscopic biopsy- Tubular adenoma B. Proximal transverse colon polyp, endoscopic biopsy- Tubular adenoma C. Ascending colon polyp, endoscopic piecemeal polypectomy- Tubular adenoma fragments D. Descending colon polyps x2, endoscopic biopsies- Fragments of tubular adenomas E. Rectal polyp, endoscopic biopsy- Hyperplastic polyp Jeanette Rodriguez M.D. Report Electronically Reviewed and Signed Out By Jeanette Rodriguez M.D. 08/23/2025 16:06:59 Specimen(s) Received: A: Distal transverse polyp x 1 B: Proximal transverse polyp x 1 C: Ascending polyp x 1 D: Descending polyp x 2 E: Rectal polyp x 1 Microscopic Description: Microscopic examination corroborates the diagnosis. There is no evidence of high-grade dysplasia or malignancy in material examined. Clinical History: Screening for colon cancer. Colonoscopy. Gross Description: The specimen is submitted in five containers labeled KATLYN PEREZ. A. The first container is labeled distal transverse polyp. It is 1 pickens tissue fragment measuring 3 mm. All in A. B. The second container is labeled proximal transverse polyp. It is 1 red-pickens polypoid tissue fragment measuring 9 mm. Inked and bisected. All in B. C. The third container is labeled ascending polyp. It is multiple pickens polypoid tissue fragments with an approximate aggregate volume of 2 cc. The largest piece is 9 mm which is inked and bisected. All in C. D. The fourth container is labeled descending polyp x2. It is 2 pickens tissue fragments between 2 and 4 mm. All in D. E. The fifth container is labeled rectal polyp. It is 2 pickens tissue fragments measuring 1 mm. All in E. T.A. Etta David., P.A./Ta Burt M.D. REPORT IMAGES AND SCANNED DOCUMENTS, IF INCLUDED, ONLY VIEWABLE IN PDF VERSION OF REPORT The performance characteristics of some immunohistochemical stains, fluorescence in-situ hybridization tests and immunophenotyping by flow cytometry cited in this report (if any) were determined by the Surgical Pathology Department at [facility] as part of an ongoing nurse quality program and in compliance with federally mandated regulations drawn from the Clinical Laboratory Improvement Act of 1988 (CLIA '88). Some of these tests rely on the use of analyte specific reagents and are subject to specific labeling requirements by the US Food and Drug Administration. Such diagnostic tests may only be performed in a facility that is certified by the Department of Health and Human Services as a high complexity laboratory under CLIA '88. The FDA has determined that such clearance or approval is not necessary. This test is used for clinical purposes. It should not be regarded as investigational or for research. Nevertheless, federal rules concerning the medical use of analyte specific reagents require that the following disclaimer be attached to the report: This test was developed and its performance characteristics determined by the Surgical Pathology Department [facility]. It has not been cleared or approved by the U. S. Food and Drug Administration. Note for decalcified specimens: This assay has not been validated on decalcified tissues. Results should be interpreted with caution given the possibility of false negativity on decalcified specimens us Akhil Vuong DO LAB PATHOLOGY ORDERABLES Final Result Performing Organization Address City/State/[facility] Co de Phone Number PATHOLOGY [address] [phone] * Colonoscopy (08/22/2025 7:49 AM CDT) Anatomical Region Laterality Modality Other Narrative Procedure Note Akhil Vuong, - 08/22/2025 7:49 AM CDT [facility] Patient Name: Katlyn Perez Procedure Date: 08/22/2025 7:49 AM Date of : 1970 Admit Type: Outpatient Age: 55 Gender: Male Attending MD: Akhil Vuong D.O., Room: [facility] ENDOSCOPY ROOM 3 Note Status: Finalized Patient Profile: Refer to note in patient chart for documentation of history and physical. Procedure: Colonoscopy Indications: Family history of colon cancer in patient's mother, Last colonoscopy: 2014 Referring MD: Rambo Carrillo M.D. Providers: Akhil Vuong D.O. Impression: - One 20 mm polyp in the ascending colon, removedwith a hot snare. Resected and retrieved. Clips (MR conditional) were placed. Clip printing roller handler: [employer]. - One 8 mm polyp in the proximal transverse colon, removed with a hot snare. Resected and retrieved.Clip (MR conditional) was placed. Clip printing roller handler:[employer]. - One 6 mm polyp in the distal transverse colon, removed with a hot snare. Resected and retrieved. - One 5 mm polyp in the proximal descending colon, removed with a hot snare. Resected and retrieved. - One 2 mm polyp in the proximal descending colon, removed with a jumbo cold forceps. Resected and retrieved. - Diverticulosis in the left colon. - One 2 mm polyp in the rectum, removed with ajumbo cold forceps. Resected and retrieved. - Non-bleeding internal hemorrhoids. Recommendation: - Discharge patient to home. - Resume previous diet. - Continue present medications. - Await pathology results. - Repeat colonoscopy in 6 months for surveillance after piecemeal polypectomy. - Return to primary care physician PRN. Medicines: Monitored Anesthesia Care Complications: No immediate complications. Estimated Blood Loss: Estimated blood loss was minimal. Procedure: Pre-Anesthesia Assessment: - As per anesthesia. The benefits, risks and alternatives of theprocedure and sedation were discussed and informed consentwas obtained. All questions were answered. Please referto the signed informed consent document in the medical record. The bowel preparation used was Miralax via split dose instruction. The bowel preparation usedwas bisacodyl tablets via split dose instruction. The scope was passed under direct vision. TheColonoscope [id number] was introduced through the anus and advanced to the the cecum, identified by appendiceal orifice and ileocecal valve. The colonoscopy was performed without difficulty. The patient tolerated the procedure well. The qualityof the bowel preparation was adequate. Anatomical landmarks were photographed. Findings: The perianal and digital rectal examinations were normal. A 20 mm polyp was found in the ascending colon. The polyp was semi-pedunculated. The polyp was removed piecemeal with a hot snare. Resection and retrieval were complete. Soft coag was utilized aroundthe edges of the polypectomy site. To prevent bleeding post-intervention, three hemostatic clips were successfully placed (MR conditional).Clip printing roller handler: [employer]. There was no bleeding at the end ofthe procedure. An 8 mm polyp was found in the proximal transverse colon. The polypwas pedunculated. The polyp was removed with a hot snare. Resection and retrieval were complete. To prevent bleeding post-intervention, one hemostatic clip was successfully placed (MR conditional). Clip printing roller handler: [employer]. There was no bleeding at the end ofthe procedure. A 6 mm polyp was found in the distal transverse colon. The polyp was pedunculated. The polyp was removed with a hot snare. Resection and retrieval were complete. A 5 mm polyp was found in the proximal descending colon. The polypwas pedunculated. The polyp was removed with a hot snare. Resection and retrieval were complete. A 2 mm polyp was found in the proximal descending colon. The polypwas removed with a jumbo cold forceps. Resection and retrieval werecomplete. A few diverticula were found in the left colon. A 2 mm polyp was found in the rectum. The polyp was removed with ajumbo cold forceps. Resection and retrieval were complete. Non-bleeding internal hemorrhoids were found. The hemorrhoids were medium-sized. No additional abnormalities were found on retroflexion. Electronically signed by Akhil Vuong M.D. Akhil Vuong D.O. 08/22/2025 9:51:52 AM Number of Addenda: 0 Note Initiated On: 08/22/2025 7:49 AM Procedure Code(s): --- Professional --- 28145, Colonoscopy, flexible; with removal of tumor(s), polyp(s), or other lesion(s) by snare technique [id number], 59, Colonoscopy, flexible; with biopsy, single or multiple --- Technical --- 40820, Colonoscopy, flexible; with removal of tumor(s), polyp(s), or other lesion(s) by snare technique [id number], 59, Colonoscopy, flexible; with biopsy, single or multiple Diagnosis Code(s): --- Professional --- D12.2, Benign neoplasm of ascending colon D12.3, Benign neoplasm of transverse colon (hepatic flexure orsplenic flexure) D12.8, Benign neoplasm of rectum D12.4, Benign neoplasm of descending colon K64.8, Other hemorrhoids Z80.0, Family history of malignant neoplasm of digestive organs K57.30, Diverticulosis of large intestine without perforation orabscess without bleeding --- Technical --- D12.2, Benign neoplasm of ascending colon D12.3, Benign neoplasm of transverse colon (hepatic flexure orsplenic flexure) D12.8, Benign neoplasm of rectum D12.4, Benign neoplasm of descending colon K64.8, Other hemorrhoids Z80.0, Family history of malignant neoplasm of digestive organs K57.30, Diverticulosis of large intestine without perforation orabscess without bleeding CPT copyright 2022 [employer]. All rights reserved. The codes documented in this report are preliminary and upon senior professional services consultant reviewmay be revised to meet current compliance requirements. Recognized by the [employer] for promoting quality in endoscopy Akhil Vuong DO ENDOSCOPY PROCEDURES Final Res ult from Last 3 Months Insurance [employer] [facility] Advance Directives For more information, please contact: [phone] * Full Code (Latest Code Status on File) Date Activated Date Inactivated Comments 08/22/2025 8:02 AM 08/22/2025 2:38 PM * Full Code Date Activated Date Inactivated Comments 08/22/2025 8:02 AM 08/22/2025 8:02 AM Care Teams Power Equipment Mechanics Instructor Relationship Specialty Start Date End Date Rambo Carrillo MD PCP - General Family Medicine 04/07/20
== END 2025-09-13 15:24 | disposition home or self-care (01) ==
PROVIDERS: PCP Family Medicine; Visit Provider Family Medicine
DX: J18.9 Pneumonia, unspecified organism (principal); J32.9 Chronic sinusitis, unspecified
CPT/HCPCS: 70486; 71046

== ENCOUNTER 2025-11-13 09:43 | Outpatient (CLI) | payer OTHER, SELFPAY ==
--- NOTE | ~2025-11-13 | XR_ITS ---
EXAMINATION: XR chest 2V DATE: 11/13/2025 11:04 INDICATION: Cough TECHNIQUE: Frontal and lateral views of the chest were obtained. COMPARISON: September 132024 FINDINGS: Bibasilar atelectatic or scarring appearing changes similar to the previous exam; tiny superimposed infiltrates not excluded. The remaining lung villegas are clear. Heart shadow normal. No pneumothorax or subphrenic free air. IMPRESSION: 1. Similar exam compared to the September 13 exam probably representing mild bibasilar atelectatic changes or scarring; small infiltrates not excluded. Reviewed, dictated and finalized at location A. MONIA TECHNICIAN IMPRESSION: 1. Similar exam compared to the September 13 exam probably representing mild biba silar atelectatic changes or scarring; small infiltrates not excluded.
--- NOTE | ~2025-11-13 | US_ITS ---
EXAMINATION: US venous doppler LE RT DATE: 11/13/2025 10:31 INDICATION: Pain and swelling TECHNIQUE: Grayscale ultrasound images without and with compression and Doppler ultrasound images of the right lower extremity veins were obtained. COMPARISON: None. FINDINGS: The visualized portions of right common femoral vein, profunda (deep) femoral vein, femoral vein, popliteal vein, peroneal veins, posterior tibial veins, and greater saphenous vein outflow are patent. IMPRESSION: 1. No deep venous thrombosis. Reviewed, dictated and finalized at location A. CENTER COORDINATOR
--- OUTSIDE RECORDS SUMMARY | 2025-11-13 11:04 | XMS_ITS | Clinical Summary ---
Author Organization [facility] [address] Address [address] [place] [address] Care Team Providers Care Plant Quality Manager Name Role Phone Rambo Carrillo MD Primary Care Provider [phone] Allergies Active Allergy Reactions Criticality Noted Date [...] Department Care Team Description 08/25/2025 Results Follow-Up [facility] at [place] [address] [facility] [facility] [address] [place] [address] Akhil Vuong, Surgical pathology 08/22/2025 9:00 AM CDT Anesthesia Event [facility] [address] [place] [address] Jose Liu MD [place], Natanael Chávez, HAM TRIMMER 08/22/2025 9:00 AM CDT - 08/22/2025 9:30 AM CDT Surgery [facility] [address] [place] [address] Akhil Vuong, DO COLON REMOVAL SNARE 08/22/2025 7:47 AM CDT - 08/22/2025 10:33 AM CDT Hospital Encounter [facility] [address] [place] [address] Akhil Vuong, DO Screening for colon cancer Discharge Disposition: Discharge to home or self care from Last 3 Months Surgical History Surgery Date Site/Laterality Comments [place] EXC HYDROCELE SPRMATIC CORD UNI SPX Surgery [...] on file 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 Final Report Patient Name: KATLYN PEREZ Address: [address] [place] [address] Gender: M : 1970 (Age: 55) Service: Gastro Location: [facility] Hospital #: [id number] Patient Type: [facility] Taken: 08/22/2025 Received: 08/22/2025 Accessioned: 08/22/2025 Reported: 08/23/2025 Physician(s):Dr. Akhil Vuong, D.O. Diagnosis: A. Distal transverse colon polyp, endoscopic biopsy- Tubular adenoma B. Proximal transverse colon polyp, endoscopic biopsy- Tubular adenoma C. Ascending colon polyp, endoscopic piecemeal polypectomy- Tubular adenoma fragments D. Descending colon polyps x2, endoscopic biopsies- Fragments of tubular adenomas E. Rectal polyp, endoscopic biopsy- Hyperplastic polyp Jeanette Rodriguez, M.D. Report Electronically Reviewed and Signed Out [...] determined by the Surgical Pathology Department at [facility] as part of an ongoing plant quality manager program and in compliance with federally mandated [...] characteristics determined by the Surgical Pathology Department [facility]. It has not been cleared or approved by the U. S. Food and Drug Administration. Note for decalcified specimens: This assay has not been validated on decalcified tissues. Results should be interpreted with caution given the possibility of false negativity on decalcified specimens Akhil Vuong DO LAB PATHOLOGY ORDERABLES Final Result PATHOLOGY [facility] [address] [place] [address] * Colonoscopy (08/22/2025 7:49 AM CDT) Anatomical Region Laterality Modality Other Narrative Procedure Note Akihl Vuong DO - 08/22/2025 7:49 AM CDT [facility] Patient Name: Katlyn Perez Procedure Date: 08/22/2025 7:49 AM Date of : 1970 Admit Type: Outpatient Age: 55 Gender: Male Attending MD: Akhil Vuong D.O., Room: [facility] ENDOSCOPY ROOM 3 Note Status: Finalized [...] retrieved. Clips (MR conditional) were placed. 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 - One 8 mm polyp in the proximal transverse colon, removed with a hot snare. Resected and retrieved.Clip (MR conditional) was placed. Clip forest products gatherer:[employer]. - One 6 mm polyp in the [...] scope was passed under direct vision. TheColonoscope [id number] was introduced through the anus and advanced [...] hemostatic clips were successfully placed (MR conditional).Clip forest products gatherer: [employer]. There was no bleeding at the end ofthe procedure. An 8 mm polyp was found in the proximal transverse colon. The polypwas pedunculated. The polyp was removed with a hot snare. Resection and retrieval were complete. To prevent bleeding post-intervention, one hemostatic clip was successfully placed (MR conditional). 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 There was no bleeding at the end [...] 7:49 AM Procedure Code(s): --- Professional --- 04082, Colonoscopy, flexible; with removal of tumor(s), polyp(s), or other lesion(s) by snare technique 96233, 59, Colonoscopy, flexible; with biopsy, single or multiple --- Technical --- 94503, Colonoscopy, flexible; with removal of tumor(s), polyp(s), or other lesion(s) by snare technique 07891, 59, Colonoscopy, flexible; with biopsy, single or [...] perforation orabscess without bleeding CPT copyright 2022 [employer]. All rights reserved. The codes documented in this report are preliminary and upon ancient art curator reviewmay be revised to meet current compliance requirements. Recognized by the [employer] for promoting quality in endoscopy Akhil Vuong DO ENDOSCOPY PROCEDURES Final Res ult from Last 3 Months Insurance [facility] Advance Directives For more information, please contact: [phone] * Full Code (Latest Code Status on File) Date Activated Date Inactivated Comments 08/22/2025 8:02 AM 08/22/2025 2:38 PM * Full Code Date Activated Date Inactivated Comments 08/22/2025 8:02 AM 08/22/2025 8:02 AM Care Teams Plant Quality Manager Relationship Specialty Start Date End Date Rambo Carrillo MD PCP - General Family Medicine 04/07/20
[2025-11-13 11:51] LABS: Hematocrit 49.1 % (42.0-52.0); Hemoglobin 16.5 g/dL (14.0-18.0); Immature Granulocyte Percent A 0.1 % (0-0.5); Lymphocytes Absolute Auto 2.02 K/mm3 (0.9-3.2); Mean Corpuscular HGB Conc 33.6 g/dl (32-36); Mean Corpuscular Hemoglobin 30.3 pg (26-34); Mean Corpuscular Volume 90.3 fl (80-100); Nucleated Red Blood Cells Absolute Auto 0.000 K/mm3 (0.0-0.012); Nucleated Red Blood Cells Perc 0.0 % (0.0-0.2); Platelet Count Result 268 k/mm3 (150-375); Red Blood Count 5.44 M/mm3 (4.6-6.20); White Blood Count 7.2 K/mm3 (4.5-10.0)
[2025-11-13 12:13] LABS: Alanine Aminotransferase 29 U/L (6-50); Albumin Level 4.5 g/dL (3.5-5.1); Alkaline Phosphatase 67 U/L (38-126); Anion Gap 8 mmol/L (4-12); Aspartate Amino Transferase 39 U/L (17-59); Bilirubin,Total 1.1 mg/dL (0.2-1.3); Blood Urea Nitrogen 14 mg/dL (9-20); Calcium 9.1 mg/dL (8.4-10.2); Carbon Dioxide 30 mmol/L (22-30); Chloride 104 mmol/L (98-107); Cholesterol 153 mg/dL (0-200); Estimated Glomerular Filt Rate > 60; Glucose 106 mg/dL (65-110); HDL Direct 33 mg/dL; Magnesium 2.1 mg/dL (1.6-2.3); Potassium 3.9 mmol/L (3.4-5.0); Sodium 142 mmol/L (137-145); Total Protein 8.0 g/dL (6.3-8.2); Triglycerides 115 mg/dL (<150)
[2025-11-13 12:20] LABS: NT Pro B Type Natriuretic Pept < 20 pg/mL (19.9-100)
[2025-11-13 12:42] LABS: Prostate Specific Antigen 0.8 ng/mL (< OR = 4.0); Thyroid Stimulating Hormone 1.890 uIU/mL (0.465-4.680)
== END 2025-11-13 09:44 | disposition home or self-care (01) ==
PROVIDERS: PCP Family Medicine; Visit Provider Nurse Practitioner Adult Health
DX: M25.561 Pain in right knee (principal); M25.461 Effusion, right knee; R60.0 Localized edema; G47.33 Obstructive sleep apnea (adult) (pediatric); R05.3 Chronic cough; R06.01 Orthopnea; E66.01 Morbid (severe) obesity due to excess calories; Z68.42 Body mass index [BMI] 45.0-49.9, adult; Z99.89 Dependence on other enabling machines and devices; Z13.220 Encounter for screening for lipoid disorders; Z12.5 Encounter for screening for malignant neoplasm of prostate
CPT/HCPCS: 36415; 71046; 80053; 80061; 83735; 83880; 84153; 84443; 85025; 85380; 93971; G0103